=== PATIENT | female | born 1995 | race Two or more races ===

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

== ENCOUNTER 2017-05-19 13:38 | Emergency (ER) | payer OTHER ==
[2017-05-19 15:00] VITALS: BP 110/62
--- NOTE | 2017-05-19 15:11 | UC ---
Throat Pain/Nasal Marcos HPI - HPI Summary HPI Summary: 1 month of worsening sinus pain and nasal congestion - History of Current Complaint Chief Complaint: UCGeneralIllness Stated Complaint: SINUS PRESSURE Time Seen by Provider: 05/19/17 14:58 Hx Obtained From: Patient Hx Last Menstrual Period: 05/04/17 ?: No Onset/Duration: Sudden Onset, Lasting Weeks - 4, Still Present Severity: Moderate Cough: None Associated Signs & Symptoms: Positive: Sinus Discomfort - Allergies/Home Medications Allergies/Adverse Reactions: Allergies Allergy/AdvReac Type Severity Reaction Status Date / Time No Known Allergies Allergy Verified 05/19/17 15:00 PMH/Surg Hx/FS Hx/Imm Hx Previously Healthy: Yes - Surgical History Surgical History: Yes Surgery Procedure, Year, and Place: MYRINGOTOMY X2, AGE 8 OR 9, [facility]. 05/23/13, RIGHT MYRINGOTOMY, [facility] [place] - Family History Known Family History: Negative: Cardiac Disease, Hypertension - Social History Occupation: Employed Part-time, Student Lives: With Family Alcohol Use: Occasionally Substance Use Type: None Smoking Status (MU): Never Smoked Tobacco Have You Smoked in the Last Year: No Household Exposure Type: Cigarettes - Immunization History Most Recent Influenza Vaccination: [id number] Most Recent Tetanus Shot: UTD Most Recent Pneumonia Vaccination: NONE Vaccination Up to Date: Yes Review of Systems Constitutional: Negative Skin: Negative Eyes: Negative ENT: Sinus Congestion, Sinus Pain/Tenderness Respiratory: Negative Cardiovascular: Negative Gastrointestinal: Negative Genitourinary: Negative Motor: Negative Neurovascular: Negative Musculoskeletal: Negative Neurological: Headache Psychological: Negative Is Patient Immunocompromised?: No All Other Systems Reviewed And Are Negative: Yes Physical Exam Triage Information Reviewed: Yes Appearance: Well-Appearing, No Pain Distress, Well-Nourished Vital Signs: Initial Vital Signs Temp 98.3 F 05/19/17 14:55 Pulse 88 05/19/17 14:55 Resp 15 05/19/17 14:55 BP 110/62 05/19/17 14:55 Pulse Ox 99 05/19/17 14:55 Vital Signs Reviewed: Yes Eye Exam: Normal Eyes: Positive: Conjunctiva Clear ENT Exam: Normal ENT: Positive: Normal ENT inspection, Hearing grossly normal, Pharynx normal, Nasal congestion, TMs normal, Sinus tenderness, Uvula midline. Negative: Nasal drainage, Tonsillar swelling, Tonsillar exudate, Trismus, Muffled voice, Hoarse voice, Dental tenderness Dental Exam: Normal Neck exam: Normal Neck: Positive: Supple, Nontender, No Lymphadenopathy Respiratory Exam: Normal Respiratory: Positive: Chest non-tender, Lungs clear, Normal breath sounds, No respiratory distress, No accessory muscle use Cardiovascular Exam: Normal Cardiovascular: Positive: RRR, No Murmur, Pulses Normal, Brisk Capillary Refill Musculoskeletal Exam: Normal Musculoskeletal: Positive: Strength Intact, ROM Intact, No Edema Neurological Exam: Normal Neurological: Positive: Alert, Muscle Tone Normal Psychological Exam: Normal Skin Exam: Normal Throat Pain/Nasal Course/Dx - Course Assessment/Plan: Augmentin, flonase, increase fluids, tylenol, ibuprofen follow with pcp prn - Differential Dx/Diagnosis Provider Diagnoses: Sinusitis Discharge - Discharge Plan Condition: Stable Disposition: HOME Prescriptions: Amoxicillin/Clavulanate SUSP* [Augmentin SUSP*] 800 mg PO BID #200 ml Fluticasone NASAL SPRAY 50MCG* [Flonase NASAL SPRAY 50MCG*] 2 spray BOTH NARES DAILY #1 btl Patient Education Materials: Rhinosinusitis (ED), How to Use Nasal Labolt (ED) Referrals: [facility] [place] PHYSICIAN REFERRAL [Outside] - If Needed [address] [Outside] - If Needed
== END 2017-05-19 15:20 | disposition home or self-care (01) ==
LOC: UCCORT 13:38
DX: J32.9 Chronic sinusitis, unspecified (principal); Z77.22 Contact with and (suspected) exposure to environmental tobacco smoke (acute) (chronic)
CPT/HCPCS: 99212; G0463

== ENCOUNTER 2017-08-25 07:30 | Day surgery (SDC) | payer OTHER ==
[~2017-08-25 07:30] MED LIST: Buffered Lidocaine 0.9% SYRIN* 5 ML/SYR SYRINGE INTRADERM ONE; Dexamethasone IV* 4 MG/ML 1 ML (4 MG) IV SLOW PU ONE; Famotidine IV* 10 MG/ML 2 ML (20 mg) IV ONE
[2017-08-25] MEDS ORDERED: Dexamethasone IV* 4 MG/ML 1 ML (4 MG) ONE (08:03)
[2017-08-25] MEDS ORDERED: Buffered Lidocaine 0.9% SYRIN* 5 ML/SYR SYRINGE ONE (08:03)
[2017-08-25] MEDS ORDERED: Famotidine TAB* 20 MG ONE (08:03)
[2017-08-25] MEDS ORDERED: fentaNYL* 50 MCG/ML 2 ML VIAL (100 MCG VIAL) ONE (09:00)
[2017-08-25] MEDS ORDERED: Propofol* 10 MG/ML 20 ML BTL IV PUSH ONE (09:00)
[2017-08-25] MEDS ORDERED: Lidocaine 2% PF * 5 ML VIAL ONE (09:00)
[2017-08-25] MEDS ORDERED: Ciprofloxacin 0.3% OPTH.SOL* 2.5 ML BTL ONE (09:19)
[2017-08-25] MEDS ORDERED: Naloxone* 0.4 MG/ML 1 ML VIAL IV PRN (09:50)
[2017-08-25] MEDS ORDERED: fentaNYL* 50 MCG/ML 2 ML VIAL (100 MCG VIAL) IV PRN (09:50)
[2017-08-25] MEDS ORDERED: Ondansetron INJ* 2 MG/ML VIAL IV PRN (09:50)
[2017-08-25 10:17] VITALS: BP 113/70
--- NOTE | 2017-08-25 11:45 | OP ---
DATE OF OPERATION: 08/25/17 - [facility] DATE OF : 89 ATTENDING SURGEON: Aron Gonzales MD FULL SERVICE VENDING DRIVER: None. ANESTHESIA: General. PRE-OP DIAGNOSIS: Chronic serous otitis media on the right. POST-OP DIAGNOSIS: Chronic serous otitis media on the right. OPERATIVE PROCEDURE: Removal of right tympanostomy tube with replacement of T- tube. FINDINGS: Effusion in the middle ear space. INDICATION: This is a 22-year-old woman who has had longstanding problems with right-sided eustachian tube dysfunction and has needed multiple tympanostomy tubes. Her most recent tympanostomy tube became plugged and was unable to be cleared in the office. The decision was made to bring her to the operating room to remove her plugged tympanostomy tube and replace it with a new T-tube. DESCRIPTION OF PROCEDURE: On 08/25/17 the patient was brought to the operating room. General anesthesia was induced and the patient was kept to sleep with a combination of inhaled anesthesia by mask and IV sedation. The patient was draped. A time-out was performed. The right ear was inspected under the microscope. The patient had a Gregory style T-tube present in the posterior tympanic membrane, which was removed. There appeared to be partial rejection of the tube with some granulation tissue at the myringotomy site. The decision was made to replace the myringotomy tube with a new Reyna modified T-tube and to place this one anteriorly. A new myringotomy was made anteriorly. Some mucoid fluid was suctioned out from the middle ear space. A Reyna modified T -tube was placed followed by ciprofloxacin drops and cotton ball. The patient was then returned to the care of the anesthesiologist and allowed to arise from anesthesia and delivered to the PACU in stable condition. [id number]/[facility] #: [id number] [facility]
== END 2017-08-25 10:31 | disposition home or self-care (01) ==
LOC: OR 07:30
PROVIDERS: ATTEND Otolaryngology
DX: H65.21 Chronic serous otitis media, right ear (principal)
CPT/HCPCS: 81025; A9270-GY; J1100; J2704; J3010